=== PATIENT | male | born 1975 | race Caucasian/White ===

== ENCOUNTER → 2019-09-02 | Outpatient (REF) | payer OTHER ==
[2019-09-02 11:58] LABS: HEMATOCRIT 41.1 % (42.0-52.0); HEMOGLOBIN 13.8 g/dl (13.5-17.5)
[2019-09-02 12:13] LABS: ALBUMIN 3.5 GM/DL (3.2-5.2); BILIRUBIN,DIRECT 0.1 MG/DL (0.0-0.2); BILIRUBIN,TOTAL 0.7 MG/DL (0.2-1.0); TOTAL PROTEIN 6.9 GM/DL (6.4-8.2)
[2019-09-03 14:09] LABS: TESTOSTERONE FREE (DIRECT) 16.3 pg/mL (6.8-21.5)
== END ==
LOC: M SFHCLERA 09:37
PROVIDERS: ATTEND Nurse Practitioner Family
DX: E29.1 Testicular hypofunction (principal)

== ENCOUNTER → 2021-09-27 | Outpatient (CLI) | payer OTHER ==
[2021-09-28 18:07] LABS: TESTOSTERONE FREE (DIRECT) 13.9 pg/mL (6.8-21.5)
== END ==
LOC: M LAB 09:45
PROVIDERS: ATTEND Urology
DX: R79.89 Other specified abnormal findings of blood chemistry (principal)

== ENCOUNTER → 2022-01-03 | Outpatient (CLI) | payer OTHER ==
[2022-01-03 12:19] LABS: HEMATOCRIT 39.8 % (42.0-52.0); HEMOGLOBIN 13.8 g/dl (13.5-17.5); MEAN CORPUSCULAR HEMOGLOBIN 31.8 pg (27.0-33.0); MEAN CORPUSCULAR HGB CONC 34.7 g/dl (32.0-36.5); MEAN CORPUSCULAR VOLUME 91.7 fl (80.0-96.0); PLATELET COUNT, AUTOMATED 182 10^3/uL (150-450); RED BLOOD COUNT 4.34 10^6/uL (4.30-6.10); WHITE BLOOD COUNT 6.4 10^3/uL (4.0-10.0)
[2022-01-03 12:49] LABS: ALBUMIN 3.4 GM/DL (3.2-5.2); ALT/SGPT 36 U/L (12-78); BILIRUBIN,TOTAL 0.7 MG/DL (0.2-1.0); BLOOD UREA NITROGEN 14 MG/DL (7-18); CALCIUM LEVEL 8.8 MG/DL (8.5-10.1); CARBON DIOXIDE LEVEL 29 MEQ/L (21-32); CHLORIDE LEVEL 110 MEQ/L (98-107); GLOMERULAR FILTRATION RATE > 60.0 (>60); GLUCOSE, FASTING 103 MG/DL (70-100); POTASSIUM SERUM 4.2 MEQ/L (3.5-5.1); SODIUM LEVEL 143 MEQ/L (136-145); TOTAL PROTEIN 6.9 GM/DL (6.4-8.2)
[2022-01-04 20:08] LABS: PSA TOTAL 1.2 ng/mL (0.0-4.0); TESTOSTERONE FREE (DIRECT) 10.8 pg/mL (6.8-21.5)
== END ==
LOC: M LAB 11:31
PROVIDERS: ATTEND Urology
DX: R79.89 Other specified abnormal findings of blood chemistry (principal); R97.20 Elevated prostate specific antigen [PSA]

== ENCOUNTER 2022-03-21 14:30 | Emergency (ER) | payer OTHER ==
[~2022-03-21] VITALS: Ht 167.6 cm; Wt 69.5 kg
[2022-03-21 14:31] VITALS: BP 113/56
== END 2022-03-21 19:54 | disposition left against medical advice (07) ==
LOC: M ED 14:30
DX: Z53.21 Procedure and treatment not carried out due to patient leaving prior to being seen by health care provider (principal)

== ENCOUNTER 2022-03-26 17:09 | Inpatient (IN) | payer OTHER ==
[~2022-03-26] VITALS: Ht 167.6 cm; Wt 70.0 kg
[2022-03-26 20:52] LABS: BASO % 0.3 % (0.0-1.0); EOS # 0.1 10^3/uL (0.0-0.5); EOS % 0.6 % (0.0-3.0); HEMATOCRIT 36.7 % (42.0-52.0); HEMOGLOBIN 12.9 g/dl (13.5-17.5); LYMPH # 1.7 10^3/uL (1.5-5.0); LYMPH % 15.8 % (24.0-44.0); MEAN CORPUSCULAR HEMOGLOBIN 31.5 pg (27.0-33.0); MEAN CORPUSCULAR HGB CONC 35.1 g/dl (32.0-36.5); MEAN CORPUSCULAR VOLUME 89.5 fl (80.0-96.0); MONO # 1.2 10^3/uL (0.0-0.8); NEUTROPHILS # 7.5 10^3/uL (1.5-8.5); NEUTROPHILS % 71.6 % (36.0-66.0); PLATELET COUNT, AUTOMATED 228 10^3/uL (150-450); WHITE BLOOD COUNT 10.5 10^3/uL (4.0-10.0)
[2022-03-26] MEDS ORDERED: PRAZOSIN 1 MG CAP PO SCH (21:00)
[2022-03-26] MEDS ORDERED: PROPRANOLOL 60 MG LA CAP PO SCH (21:00)
[2022-03-26 21:19] LABS: ERYTHROCYTE SEDIMENTATION RATE 44 mm/hr (0-15)
[2022-03-26] MEDS ORDERED: PIPERACILLIN/TAZOBACTAM SOD 3.375 GM in D5W MINI-BAG PLUS 50 ML IV ONE (21:50)
[2022-03-26] MEDS ORDERED: dexameTHASONE 20MG/5ML VIAL (J1100 PER 1MG) IV ONE (21:50)
[2022-03-26] MEDS ORDERED: ISOVUE-370 76% 100ML VIAL As Ordered ONE (21:53)
[2022-03-26] MEDS ORDERED: NS 1,000 ML IV ONE (22:35)
[2022-03-26] MEDS ORDERED: ACETAMINOPHEN TAB 650MG DOSE (2X325MG) PO PRN (23:10)
[2022-03-26] MEDS ORDERED: NS 1,000 ML IV SCH (23:10)
[2022-03-26] MEDS ORDERED: MAGN400T2 PO (23:17)
[2022-03-26] MEDS ORDERED: PRAV80TA2 PO (23:17)
[2022-03-26] MEDS ORDERED: OCUVTAB4 PO (23:17)
[2022-03-26] MEDS ORDERED: OMEP20TA17 PO (23:17)
[2022-03-26] MEDS ORDERED: PRAZ1CAP PO (23:17)
[2022-03-26] MEDS ORDERED: CYCL5TAB PO (23:17)
[2022-03-26] MEDS ORDERED: FIBE625T PO ×2 (23:21)
[2022-03-26] MEDS ORDERED: PROP60CA PO (23:21)
[2022-03-26] MEDS ORDERED: B-2100TA PO (23:21)
[2022-03-26] MEDS ORDERED: PROBCAP14 PO (23:21)
[2022-03-26] MEDS ORDERED: ANDR1.62 TOP (23:21)
[2022-03-26] MEDS ORDERED: HOME MED LIST COMPLETE! XX SCH (23:25)
[2022-03-27 00:41] VITALS: BP 132/69
[2022-03-27] MEDS ORDERED: AMPICILLIN SOD/SULBACTAM SOD 3 GM in D5W MINI-BAG PLUS 100 ML IV SCH (05:00)
[2022-03-27 06:26] VITALS: BP 130/70
[2022-03-27 06:42] LABS: HEMATOCRIT 34.6 % (42.0-52.0); HEMOGLOBIN 12.1 g/dl (13.5-17.5); MEAN CORPUSCULAR VOLUME 88.7 fl (80.0-96.0); PLATELET COUNT, AUTOMATED 219 10^3/uL (150-450); WHITE BLOOD COUNT 6.4 10^3/uL (4.0-10.0)
[2022-03-27] MEDS ORDERED: AMOX875T2 PO (07:00)
[2022-03-27 07:13] LABS: BLOOD UREA NITROGEN 4 MG/DL (7-18); CALCIUM LEVEL 8.7 MG/DL (8.5-10.1); CARBON DIOXIDE LEVEL 25 MEQ/L (21-32); CHLORIDE LEVEL 107 MEQ/L (98-107); CREATININE FOR GFR 0.59 MG/DL (0.70-1.30); GLOMERULAR FILTRATION RATE > 60.0 (>60); GLUCOSE, FASTING 144 MG/DL (70-100); POTASSIUM SERUM 3.8 MEQ/L (3.5-5.1); SODIUM LEVEL 138 MEQ/L (136-145)
[2022-03-27] MEDS ORDERED: OMEPRAZOLE 20MG CAP PO SCH (07:30)
[2022-03-27] MEDS ORDERED: MAGNESIUM OXIDE 400MG TAB (MAG-OX) PO SCH (09:00)
[2022-03-27] MEDS ORDERED: PRAVASTATIN 20 MG TAB PO SCH (09:00)
[2022-03-27] MEDS ORDERED: CYCLOBENZAPRINE 5MG TABLET PO SCH (09:00)
== END 2022-03-27 07:52 | disposition home or self-care (01) | DRG 159 ==
LOC: M ED 17:09 → M ED INP 22:52
PROVIDERS: ADMIT Family Medicine; ATTEND Student in an Organized Health Care Education/Training Program
DX: M27.2 Inflammatory conditions of jaws (principal); K21.9 Gastro-esophageal reflux disease without esophagitis; E78.5 Hyperlipidemia, unspecified; I10 Essential (primary) hypertension; F43.10 Post-traumatic stress disorder, unspecified; E29.1 Testicular hypofunction; K08.9 Disorder of teeth and supporting structures, unspecified; G47.33 Obstructive sleep apnea (adult) (pediatric); Z79.899 Other long term (current) drug therapy; Z87.820 Personal history of traumatic brain injury; Z88.8 Allergy status to other drugs, medicaments and biological substances

== ENCOUNTER → 2022-07-11 | Outpatient (CLI) | payer OTHER ==
[~2022-07-11] MED LIST: AMOX875T2 PO; ANDR1.62 TOP; B-2100TA PO; CYCL5TAB PO; FIBE625T PO; MAGN400T2 PO; OCUVTAB4 PO; OMEP20TA17 PO; PRAV80TA2 PO; PRAZ1CAP PO; PROBCAP14 PO; PROP60CA PO
[2022-07-11 10:22] LABS: HEMATOCRIT 45.2 % (42.0-52.0); HEMOGLOBIN 15.1 g/dl (13.5-17.5); MEAN CORPUSCULAR HEMOGLOBIN 30.4 pg (27.0-33.0); MEAN CORPUSCULAR HGB CONC 33.4 g/dl (32.0-36.5); MEAN CORPUSCULAR VOLUME 90.9 fl (80.0-96.0); PLATELET COUNT, AUTOMATED 220 10^3/uL (150-450); RED BLOOD COUNT 4.97 10^6/uL (4.30-6.10); WHITE BLOOD COUNT 5.9 10^3/uL (4.0-10.0)
[2022-07-12 15:08] LABS: PSA TOTAL 1.2 ng/mL (0.0-4.0); TESTOSTERONE FREE (DIRECT) 18.2 pg/mL (6.8-21.5)
== END ==
LOC: M LAB 09:17
PROVIDERS: ATTEND Urology
DX: R79.89 Other specified abnormal findings of blood chemistry (principal)

== ENCOUNTER → 2022-10-20 | Outpatient (CLI) | payer OTHER ==
[2022-10-20 12:12] LABS: HEMATOCRIT 42.7 % (42.0-52.0); HEMOGLOBIN 14.5 g/dl (13.5-17.5); MEAN CORPUSCULAR HEMOGLOBIN 31.3 pg (27.0-33.0); PLATELET COUNT, AUTOMATED 200 10^3/uL (150-450); RED BLOOD COUNT 4.64 10^6/uL (4.30-6.10); WHITE BLOOD COUNT 6.3 10^3/uL (4.0-10.0)
[2022-10-20 12:39] LABS: ALBUMIN 3.7 G/DL (3.2-5.2); ALKALINE PHOSPHATASE 78 U/L (46-116); ALT/SGPT 30 U/L (7.0-40); AST/SGOT 17 U/L (<34); BILIRUBIN,TOTAL 0.7 MG/DL (0.3-1.2); BLOOD UREA NITROGEN 16 MG/DL (9-23); CALCIUM LEVEL 8.3 MG/DL (8.5-10.1); CARBON DIOXIDE LEVEL 28 MMOL/L (20-31); CHLORIDE LEVEL 108 MMOL/L (98-107); CREATININE FOR GFR 0.87 MG/DL (0.70-1.30); GLOMERULAR FILTRATION RATE > 60.0 (>60); GLUCOSE, FASTING 99 MG/DL (60-100); POTASSIUM SERUM 4.6 MMOL/L (3.5-5.1); SODIUM LEVEL 141 MMOL/L (136-145); TOTAL PROTEIN 6.8 G/DL (5.7-8.2)
[2022-10-21 21:12] LABS: TESTOSTERONE FREE (DIRECT) 12.8 pg/mL (6.8-21.5)
== END ==
LOC: M LAB 11:13
PROVIDERS: ATTEND Urology
DX: R79.89 Other specified abnormal findings of blood chemistry (principal)

== ENCOUNTER → 2023-01-16 | Outpatient (CLI) | payer OTHER ==
[2023-01-16 11:59] LABS: HEMATOCRIT 40.5 % (42.0-52.0); HEMOGLOBIN 13.7 g/dl (13.5-17.5)
[2023-01-17 21:11] LABS: TESTOSTERONE FREE (DIRECT) 7.6 pg/mL (6.8-21.5)
== END ==
LOC: M LAB 11:17
PROVIDERS: ATTEND Urology
DX: E29.1 Testicular hypofunction (principal)

== ENCOUNTER → 2023-04-20 | Outpatient (CLI) | payer OTHER ==
[2023-04-20 09:49] LABS: HEMATOCRIT 43.6 % (42.0-52.0); HEMOGLOBIN 14.8 g/dl (13.5-17.5); MEAN CORPUSCULAR HEMOGLOBIN 31.2 pg (27.0-33.0); MEAN CORPUSCULAR HGB CONC 33.9 g/dl (32.0-36.5); MEAN CORPUSCULAR VOLUME 91.8 fl (80.0-96.0); PLATELET COUNT, AUTOMATED 205 10^3/uL (150-450); RED BLOOD COUNT 4.75 10^6/uL (4.30-6.10); WHITE BLOOD COUNT 5.3 10^3/uL (4.0-10.0)
[2023-04-20 10:17] LABS: ALBUMIN 3.6 G/DL (3.2-5.2); ALKALINE PHOSPHATASE 86 U/L (46-116); ALT/SGPT 24 U/L (7.0-40); AST/SGOT 17 U/L (<34); BILIRUBIN,TOTAL 0.7 MG/DL (0.3-1.2); BLOOD UREA NITROGEN 9 MG/DL (9-23); CALCIUM LEVEL 9.1 MG/DL (8.5-10.1); CARBON DIOXIDE LEVEL 29 MMOL/L (20-31); CHLORIDE LEVEL 109 MMOL/L (98-107); CREATININE FOR GFR 0.74 MG/DL (0.70-1.30); GLOMERULAR FILTRATION RATE > 60.0 (>60); GLUCOSE, FASTING 103 MG/DL (60-100); POTASSIUM SERUM 4.8 MMOL/L (3.5-5.1); SODIUM LEVEL 144 MMOL/L (136-145); TOTAL PROTEIN 6.9 G/DL (5.7-8.2)
[2023-04-21 16:09] LABS: PSA TOTAL 1.3 ng/mL (0.0-4.0); TESTOSTERONE FREE (DIRECT) 16.9 pg/mL (6.8-21.5)
== END ==
LOC: M LAB 09:06
PROVIDERS: ATTEND Urology
DX: E29.1 Testicular hypofunction (principal); R97.20 Elevated prostate specific antigen [PSA]

== ENCOUNTER → 2024-09-07 | Outpatient (CLI) | payer OTHER ==
[~2024-09-07] MED LIST changes: -CYCL5TAB PO; +CYCL5TAB4 PO
== END ==
LOC: M RAD 12:01
PROVIDERS: ATTEND Physician Assistant
DX: R06.02 Shortness of breath (principal); Z65.5 Exposure to disaster, war and other hostilities

== ENCOUNTER → 2024-09-27 | Outpatient (CLI) | payer OTHER | LOC: M CARPUL 08:42 | PROVIDERS: ATTEND Physician Assistant | DX: R06.02 Shortness of breath (principal) ==

== ENCOUNTER → 2024-10-04 | Outpatient (CLI) | payer OTHER ==
[~2024-10-04] MED LIST changes: +METHACHOLINE KIT (6 VIAL.NEB PREMIX) INH ONE
== END ==
LOC: M CARPUL 09:45
PROVIDERS: ATTEND Physician Assistant
DX: R06.02 Shortness of breath (principal)
CPT/HCPCS: 94070; 95070; J7674

== ENCOUNTER 2024-11-21 07:51 | Day surgery (SDC) | payer OTHER ==
[~2024-11-21] VITALS: Ht 167.6 cm; Wt 71.7 kg
[~2024-11-21 07:51] MED LIST changes: +FLUT1BLS2 IH; -METHACHOLINE KIT (6 VIAL.NEB PREMIX) INH ONE; +PANT20TA6 PO; -PRAV80TA2 PO; +PRAV80TA75 PO; +VENTAER INH; +VITA100093 PO
[2024-11-21] MEDS ORDERED: LR 1,000 ML IV SCH (08:35)
[2024-11-21] MEDS: ceFAZolin SOD 2 GM IV ONCE IV ONE (14:55)
[2024-11-21] MEDS: HEPARIN SOD 5000 UNITS/ML 1 ML VIAL/SYRINGE SQ ONE (14:55)
[2024-11-21] MEDS ORDERED: MIDAZOLAM INJ 2 MG/2 ML VIAL As Ordered ONE (15:27)
[2024-11-21] MEDS ORDERED: dexmedeTOMIDine (4 MCG/ML) 200 MCG/50 ML BTL As Ordered ONE (15:27)
[2024-11-21] MEDS ORDERED: dexAMETHasone 4 MG/ML 1 ML VIAL As Ordered ONE (15:27)
[2024-11-21] MEDS ORDERED: SUGAMMADEX SODIUM 500 MG/5 ML VIAL As Ordered ONE (15:27)
[2024-11-21] MEDS ORDERED: LIDOCAINE 2% 100 MG/5 ML SDV (FOR ANES.) As Ordered ONE (15:27)
[2024-11-21] MEDS ORDERED: ONDANSETRON 4MG 2ML VIAL As Ordered ONE (15:27)
[2024-11-21] MEDS ORDERED: ACETAMINOPHEN 1000MG/100ML IV BAG As Ordered ONE (15:27)
[2024-11-21] MEDS ORDERED: ROCURONIUM BROMIDE 50MG/5ML VIAL As Ordered ONE (15:27)
[2024-11-21] MEDS ORDERED: KETOROLAC 30 MG/ML 1 ML VIAL As Ordered ONE (15:27)
[2024-11-21] MEDS ORDERED: MORPHINE 2 MG/ML 1 ML VIAL IV PRN (16:55)
[2024-11-21] MEDS ORDERED: ONDANSETRON 4MG 2ML VIAL IV PRN (16:55)
[2024-11-21 17:45] VITALS: BP 100/59; TEMP 97; O2SAT 96
== END 2024-11-21 18:07 | disposition home or self-care (01) ==
LOC: M SDC 07:51
PROVIDERS: ATTEND Surgery
DX: K40.90 Unilateral inguinal hernia, without obstruction or gangrene, not specified as recurrent (principal); F43.10 Post-traumatic stress disorder, unspecified; G47.30 Sleep apnea, unspecified; I67.1 Cerebral aneurysm, nonruptured; Z79.899 Other long term (current) drug therapy; Z88.0 Allergy status to penicillin; Z88.8 Allergy status to other drugs, medicaments and biological substances
CPT/HCPCS: 49650; C1781; J0131; J0665; J0690; J1100; J1885; J2250; J2405; J2765; J3010; S2900

== ENCOUNTER 2025-02-17 20:17 | Emergency (ER) | payer OTHER ==
[~2025-02-17] VITALS: Ht 170.2 cm; Wt 75.0 kg
[~2025-02-17 20:17] MED LIST changes: -ANDR1.62 TOP; +TEST75GE10 TOP
[2025-02-17 23:15] VITALS: BP 111/62
[2025-02-17 23:17] VITALS: TEMP 98; O2SAT 97
== END 2025-02-17 23:20 | disposition home or self-care (01) ==
LOC: M ED 20:17
DX: S39.92XA Unspecified injury of lower back, initial encounter (principal); Y92.9 Unspecified place or not applicable; Y93.9 Activity, unspecified; Y99.9 Unspecified external cause status; V49.40XA Driver injured in collision with unspecified motor vehicles in traffic accident, initial encounter; E78.00 Pure hypercholesterolemia, unspecified; F43.10 Post-traumatic stress disorder, unspecified; F41.9 Anxiety disorder, unspecified; Z87.820 Personal history of traumatic brain injury; Z88.0 Allergy status to penicillin; Z88.8 Allergy status to other drugs, medicaments and biological substances; Z79.51 Long term (current) use of inhaled steroids; Z79.899 Other long term (current) drug therapy
CPT/HCPCS: 70450; 72125; 72128; 72131; 87486; 87581; 87633; 87798; 96374; 99285; J3010

== ENCOUNTER 2025-04-20 16:48 | Emergency (ER) | payer OTHER ==
[~2025-04-20] VITALS: Ht 167.6 cm; Wt 74.1 kg
[2025-04-20 16:49] VITALS: BP 118/69; TEMP 96.6; O2SAT 97
[2025-04-20] MEDS ORDERED: HYDR-3713 PO (17:20)
[2025-04-20] MEDS ORDERED: CLEO300C2 PO (17:20)
== END 2025-04-20 17:34 | disposition home or self-care (01) ==
LOC: M ED 16:48
DX: K04.7 Periapical abscess without sinus (principal); R68.84 Jaw pain; I10 Essential (primary) hypertension; Z88.0 Allergy status to penicillin; Z88.8 Allergy status to other drugs, medicaments and biological substances; Z79.1 Long term (current) use of non-steroidal anti-inflammatories (NSAID); Z79.51 Long term (current) use of inhaled steroids; Z79.2 Long term (current) use of antibiotics; Z79.899 Other long term (current) drug therapy; Z79.890 Hormone replacement therapy

== ENCOUNTER → 2025-04-28 | Outpatient (CLI) | payer OTHER ==
[~2025-04-28] MED LIST changes: +CLEO300C2 PO; +HYDR-3713 PO
== END ==
LOC: M RAD 12:46
PROVIDERS: ATTEND Registered Nurse
DX: R93.89 Abnormal findings on diagnostic imaging of other specified body structures (principal); M25.78 Osteophyte, vertebrae